=== PATIENT | male | born 1950 | race Caucasian/White ===

== ENCOUNTER 2022-01-11 04:20 | Emergency (ER) | payer OTHER, SELFPAY ==
[2022-01-11] VITALS (14 sets, daily range): BP systolic 116–141; BP diastolic 67–87; PULSE 79–84; RESP 13–24; TEMP 36.8; O2SAT 91–98
--- NOTE | 2022-01-11 | CT_ITS ---
Final Report Patient: ANGELITO RENDON Facility:?[facility] Patient ID:?[id number] Site Patient ID:?[id number] Site :?[id number] Study:?CT Chest/Abd/Pelvis W/O TRAUMA-01/11/2022 4:48:30 AM Ordering Physician:GAVIOTA LAZO Final Report: INDICATION: Trauma; chest pain. COMPARISON: None. Technique : No evidence of mediastinal hematoma. Normal size cardiac silhouette without any pericardial effusion. Coronary artery calcifications. Small amount of pleural effusion and/or hemorrhage within the right pleural space. Fractures involving the right 3rd through 10th ribs at multiple levels. undisplaced fractures involving the left 3rd through 6th anterior ribs. No pneumothorax identified. Multiple areas of pulmonary contusion bilaterally more on the right. No focal hepatic or splenic pathology. No pancreatic pathology. Gallbladder is unremarkable. Small amount of hemorrhage identified in the right adrenal gland as well as stranding in the right retroperitoneum most likely secondary to hemorrhage. Stranding identified in the periduodenal location; if it is deceleration type of injury, repeat CT chest, abdomen and pelvis with intravenous contrast suggested. No kidney stones or obstructive uropathy. No pneumoperitoneum or intestinal obstruction. CT study of the pelvis is unremarkable. Impression : 1. Small amount of hemorrhage in the right pleural space. 2. No pneumothorax. 3. Multiple areas of pulmonary contusion involving both lungs more on the right. 4. Multiple rib fractures bilateral involving the 3rd through 10th ribs on the right at multiple levels and 3rd through 6th ribs on the left anteriorly. 5. Small amount of hemorrhage within the right adrenal gland with stranding in the right retroperitoneum. 6. Questionable hemorrhage in the periduodenal area; was it a deceleration type injury; if so repeat CT with intravenous contrast suggested involving the chest, abdomen and pelvis. Please note that all CT scans at this facility use dose modulation, iterative reconstruction, and/or weight-based dosing when appropriate to reduce radiation dose to as low as reasonably achievable. Dictated by Ryan Alvarado MD @ 01/11/2022 5:46:15 AM (Electronic Signature)
[2022-01-11] MEDS: MORPHINE 4 MG/ML INJ IVP (04:41)
[2022-01-11] MEDS: fentaNYL 100 MCG/2 ML inj 50 MCG IVP (04:54)
[2022-01-11] MEDS: 0.9 % SODIUM CHLORIDE 1000 ml 1,000 ML IV (05:00)
[2022-01-11] MEDS: HYDROmorphone 0.5 mg/0.5 ml inj IVP (06:05)
[2022-01-11] MEDS: LACTATED RINGERS 1000 ML 1,000 ML IV (06:05)
--- NOTE | 2022-01-11 06:20 | ED.NURSE ---
Report to Yue Molding Technician. Patient left department via [facility] cot en route to [facility] ER.
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
--- NOTE | 2022-01-11 06:38 | ED.NURSE ---
Report to accepting [facility] FLIGHT MANAGER.
[2022-01-11 07:44] LABS: Hematocrit 46.3 % (37.0-53.0); Hemoglobin* 15.9 gm/dL (13.5-17.5); Red Blood Count 5.14 m/uL (4.30-5.90); White Blood Count* 10.56 K/uL (4.50-11.00)
[2022-01-11 07:45] LABS: Mean Corpuscular HGB Conc 34 gm/dL (32-36); Mean Corpuscular Hemoglobin 31 pg (26-34); Mean Corpuscular Volume 90 fL (80-100); Platelet Count* 261 K/uL (140-440); Slide Review Reflex No; Sodium* 136 mmol/L (135-149)
[2022-01-11 07:46] LABS: Potassium* 2.7 mmol/L (3.6-5.1)
[2022-01-11 07:47] LABS: Blood Urea Nitrogen* 6 mg/dL (7-30); Carbon Dioxide* 24 mmol/L (20-32); Chloride* 99 mmol/L (96-114); Creatinine* 1.1 mg/dL (0.5-1.5); Estimated Glomerular Filt Rate 72.67
[2022-01-11 07:48] LABS: Calcium* 7.5 mg/dL (8.4-10.6); Glucose* 248 mg/dL (60-115)
[2022-01-11 07:51] LABS: Alanine Aminotransferase* 539 U/L (4-50); Albumin* 4.4 g/dL (3.3-5.0); Aspartate Amino Transferase* 726 U/L (12-35); Bilirubin Total* 0.4 mg/dL (0.1-1.5)
[2022-01-11 07:52] LABS: Alkaline Phosphatase* 84 U/L (40-150)
[2022-01-11 07:53] LABS: Ethanol* 0.18 % (0.01-0.03); Troponin I* < 0.01 ng/mL (0.01-0.04)
== END 2022-01-11 06:20 | disposition short-term general hospital (02) ==
PROVIDERS: Emergency Provider Family Medicine
DX: S22.43XA Multiple fractures of ribs, bilateral, initial encounter for closed fracture (principal); S27.329A Contusion of lung, unspecified, initial encounter; K68.9 Other disorders of retroperitoneum; F10.129 Alcohol abuse with intoxication, unspecified; V86.59XA Driver of other special all-terrain or other off-road motor vehicle injured in nontraffic accident, initial encounter
CPT/HCPCS: 36415; 71250; 74176; 80048; 80076; 82077; 84484; 85027; 93005; 96374; 96375; 99283; 99291; 99292; G0390; J1170; J2270; J3010; J7030; J7120

== ENCOUNTER 2022-01-11 06:20 | Outpatient (CLI) | payer OTHER, SELFPAY | END 2022-01-11 06:21 | disposition home or self-care (01) | LOC: AMB 01-16 13:48 | PROVIDERS: Visit Provider Family Medicine | DX: S22.43XS Multiple fractures of ribs, bilateral, sequela (principal); R04.89 Hemorrhage from other sites in respiratory passages | CPT/HCPCS: A0425; A0427 ==

== ENCOUNTER 2024-10-21 15:52 | Emergency (ER) | payer MEDICARE, SELFPAY ==
[2024-10-21 15:53] VITALS: BP 151/73; PULSE 76; RESP 16; TEMP 36.4; O2SAT 98; BMI 32.7
--- OUTSIDE RECORDS SUMMARY | 2024-10-21 15:54 | XMS_ITS ---
Author Name BrandonVitor griffiths Address [address] [address] [facility], Address [address] [address] Care Team Providers Care Chiropractic Practice Manager Name Role Phone Vitor Reed Primary Care Physician Unavail able Larry Navarro Unavailable Unavailable Vitor Reed Preferred Provider Unavailable Medications Active Name Start Date Estimated Comple tion Date SIG Comments Prilosec OTC 20 mg tablet,delayed release take 1 tablet by oral route daily Problem List Description Status Onset GERD (gastroesophageal reflux disease) Active 10/06/2022 History of alcohol abuse Active Nicotine dependence Active 10/06/2022 Vital Signs Date Time BP-Sys(mm[Hg] BP-Nayeli(mm[Hg]) HR(bpm) RR(rpm) Temp WT HT HC BMI BSA BMI Percentile O2 Sat(%) 023 11:59 :00 AM 225 lbs 69 in 33.2 264 kg/m 2 2.22 9 m2 History of Procedures Date Ordered Description Order Status 10/06/2022 12:00 AM Annual Visit (G0439) Reviewed 10/06/2022 12:00 AM [facility] MGMT SRVC 20 MIN Re viewed History of Past Illness Name Date of Onset Comments GERD (gastroesophageal reflu x disease) 10/06/2022 10/06/2022-Cont. Prilosec 20 mg daily. Cont. f/u w/ PCP. History of alcohol abuse 10/06/2022 023-Hx of alcohol abuse w/ intoxication; encouraged cessation. Nicotine dependence 10/06/2022 10/06/2022-8 pack year smoker. Advised to f/u w/ PCP to discuss AAA and LDCT.-Discussed risks associated w nicotine use and counseled pt to seriously consider smoking cessation. Pt voiced understanding.-WCTM Encounter for annual general medical examination with abnormal findings in adult Oct 06 2022 10:42AM History of alcohol abuse Oct 06 2022 10:42AM GERD (gastroesophageal reflu x disease) Oct 06 2022 10:42AM Nicotine dependence Oct 06 2022 10:42AM Payers Insurance Name Company Name Plan Name Plan Number Policy Number Policy Group Number Start Date [facility] CAP [id number] Thursday, 2021 [id number] CAP [id number] Sunday, 2020 History of Encounters Visit Date Visit Type Provider 10/06/2022 In Office Visit Vitor Reed EDUCATIONAL GUIDANCE COUNSELOR
--- OUTSIDE RECORDS SUMMARY | 2024-10-21 15:55 | XMS_ITS | Clinical Summary ---
Author Organization [facility] Address [address] [place] [address] Care Team Providers Care Customer Professional Name Role Phone Reyes Navarro APRN, CNP Primary Care Provid er Source Comments You are receiving this document as you are listed as the primary care provider,follow-up provider, or the patient has been referred to you for consultation.This is in compliance with the Medicare and[employer] EHR Incentive Program,which states Providers who transition their patient to another setting of careor provider of care or refers their patient to another provider of care shouldprovide summary care record for each transition of care or referral. [facility] Allerg[facility] Active Allergy Reactions Criticality Noted Date Comments Iodinated Contrast Media Swelling High 01/11/2022 Other 06/13/2004 PN: LW Other1: -CONTRAST - SWOLLEN NECK Perflutren Lipid Microspheres Anaphylaxis High 04/22/2015 PN: reaction in 2001 during stress echo Review Contrast Media 04/08/2009 PN: LW CM1: Contrast IV - Ionic Reaction : Medications Glucosamine-Wes droitin 500-400 MG LW Comment:with MSM LW Addl Instr:INDICA JAHAIRA FOR OSTEOARTHRIT IS. 04/20/2006 Active Multiple Vitamins-Mineral s (MULTIVITAMIN OR) Take by mouth Daily. 100 13 04/20/2006 Active omeprazole ([facility] OMEPRAZOLE) 20 MG enteric coated tablet Take 1 tablet by mouth daily (every 24 hours). LW Addl Instr:Indica jahaira for: Acid Reflux 90 3 05/27/2010 Active aspirin 81 MG tablet Take 1 Tablet (81 mg) by mouth daily. 3 01/29/2010 Active omega-3 fatty acids (FISH OIL) 1000 MG capsule Take 1 Capsule (1,000 mg) by mouth daily. 11/02/2011 Active sildenafil (VIAGRA) 100 MG tabletIndication s:Erectile dysfunction, unspecified erectile dysfunction type Take 1 Tablet (100 mg) by mouth daily. Take 30 mins - 1 hr before intercourse. Take only once a day. 6 Tablet 6 02/08/2023 Active sildenafil (REVATIO) 20 MG tabletIndication s:Erectile dysfunction, unspecified erectile dysfunction type Take 1-5 Tablets (20-100 mg) by mouth daily as needed. 30 Tablet 11 02/10/2024 Active Active Problems Problem Noted Date Diagnosed Date Pre-diabetes 04/10/2015 Esophageal reflux 01/29/2010 Overview (02/24/2017): Gastroesophageal Reflux Disease Tobacco use disorder 01/29/2010 Overview (02/24/2017): Tobacco Abuse Hyperlipidemia 01/29/2010 Immunizations Immunization Administration Dates Next Due HepA Adult (19+ yrs) 01/15/1998,07/17/1997 HepA, Unspecified Formulation 01/15/1998, 998 IPV (Polio) 08/26/2004 Sanaz COVID-19 Vaccine 07/07/2021 PCV20 ([id number]) 02/19/2022 PPSV23 (Pneumovax) 04/24/2020 TDAP (BOOSTRIX) 04/10/2015 Td 02/27/2007,12/19/1996 Td (7+ yrs) 08/26/2004 Typhoid (Vivotif, Oral) 08/26/2004 Zoster (Zostavax) 11/02/2011 Family History Medical History Relation Name Comments Cancer, Lung Father High Blood Pressure Brother 1 High Blood Pressure Brother 2 Cancer Paternal Grandfather Cancer, Prostate Paternal Grandfather Diabetes Paternal Grandmother Relation Name Status Comments Father Mother Brother 1 Alive Brother 2 Alive Brother 3 Alive Brother 4 Alive Brother 5 Alive Daughter 1 Alive Daughter 2 Alive Maternal Grandfather Maternal Grandmother Paternal Grandfather Paternal Grandmother Sister 1 Alive Sister 2 Alive Sister 3 Alive Social History Tobacco Use Types Packs/Day Years Used Date Smoking Tobacco: Some Days Cigarettes Last attempted to quit: 06/25/2021 Smokeless Tobacco: Never Tobacco Cessation:Ready to Q uit: Not Asked; Counseling Given: Not Answered Comments:Smoking History Packs/day:2 pks per week Alcohol Use Standard Drinks/Week Comments Not Currently 0 (1 standard drink = 0.6 oz pur e alcohol) Alcoholic Drinks/day: PHQ-2 Answer Date Recorded PHQ-2 Score 0 02/10/2024 Sex and Gender Information Value Date Recorded Sex Assigned at Not on file Legal Sex Male 11:43 AM CDT Gender Identity Not on file Sexual Orientation Not on file 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 Not on file Not on file No t on file Last Filed Vital Signs Vital Sign Reading Time Taken Comments Blood Pressure 119/64 02/10/2024 10:25 AM CDT Pulse 65 02/10/2024 10:25 AM CDT Temperature 37 C (98.6 F) 07/22/2022 1:16 PM CHILD DAY CARE PROVIDER Respiratory Rate 16 08/14/2021 11:25 AM CHILD DAY CARE PROVIDER Oxygen Saturation 95% 08/14/2021 11:25 AM CHILD DAY CARE PROVIDER Inhaled Oxygen Concentration - - Weight 97.1 kg (214 lb) 02/10/2024 10:25 AM CDT Height 173 cm (5' 8.11) 02/10/2024 10:25 AM CDT Body Mass Index 32.43 02/10/2024 10:25 AM CDT Plan of Treatment Health Maintenance Due Date Last Done Comments Lung Cancer Screening 1950 Zoster/Shingles Vaccine (2 of 3) 12/28/2011 11/02/2011 COVID-19 Vaccine (2 - season) 2024 07/07/2021 Influenza Vaccine (#1) 2024 Medicare Annual Wellness Visit 07/05/2024 02/10/2024, 02/10/2024 (Completed), 02/08/2023 (Completed), Additional history exists Prediabetes: HGBA1C 02/09/2025 02/10/2024, 02/08/2023, 02/19/2022, Additional history exists DTaP/Tdap/Td Vaccine (2 - Tdap) 04/10/2025 04/10/2015, 02/27/2007, 08/26/2004, Additional history exists RSV Vaccine (1 - 1-dose 75+ series) 02/01/2027 Colonoscopy 07/15/2027 07/15/2017, 02/03/2008 Cholesterol 02/09/2029 02/10/2024, 08/01/2023, 02/19/2022, Additional history exists HepA Vaccine Completed 01/15/1998, 01/02, 07/17/1997, Additional history exists IPV (Polio) Vaccine Aged Out 08/26/2004 No longe r eligible based on patient's age to complete this topic Hep C Screening (Preventive Services) Completed 04/14/2017 Abdominal Aortic Aneurysm (AAA) Screening Completed 05/13/2020 Pneumococcal Vaccine 50+ Yrs Completed 02/19/2022, 04/24/2020 HepB Vaccine Aged Out No longer eligi ble based on patient's age to complete this topic Hib Vaccine Aged Out No longer eligi ble based on patient's age to complete this topic MCV4 Vaccine Aged Out No longer eligi ble based on patient's age to complete this topic Meningococcal B Vaccine Aged Out No l onger eligible based on patient's age to complete this topic Procedures Procedure Name Priority Date/Time Associated Diagnosis Comments HGB A1C Routine 02/10/2024 11:27 AM CDT Pre-diabetes LIPID PANEL & DIRECT LDL (IF NEEDED) Routine 02/10/2024 11:27 AM CDT Mixed hyperlipidemia (HRC) US ABD AAA SCREENING Routine 05/13/2020 10:22 AM CHILD DAY CARE PROVIDER Encounter for abdominal aortic aneurysm (AAA) screening ENDOSCOPY, COLON, SCREENING/DIAGNOST IC Routine 07/15/2017 1:46 PM CHILD DAY CARE PROVIDER Screening for colon cancer HEPATITIS C ANTIBODY, WITH REFLEX Routine 04/14/2017 11:52 AM CDT Need for hepatitis C screening test from Last 3 Months or Most Recently Relevant to Health Maintenance Results * (ABNORMAL) Lipid Panel & Direct LDL (if Needed) (02/10/2024 11:27 AM CDT) Cholesterol 257(H) 0 - 199 mg/dL 02/10/2024 2:59 PM [facility] Triglyceride 137 <=149 mg/dL 02/10/2024 2:59 PM [facility] HDL Cholesterol 40 >=40 mg/dL 2:59 PM [facility] LDL, Calculated 190(H) <130 mg/dL 2:59 PM [facility] Non HDL Chol, Calculated 217(H) <=159 mg/dL 02/10/2024 2:59 PM [facility] Cholesterol/HDL Ratio 6.4(H) <=5.0 02/10/2024 2:59 PM [facility] Hours Fasting 16.0 8 - 12 Hours 02/10/2024 2:59 PM [facility] Blood Venipuncture / Unknown 02/10/2024 11:27 AM CDT 02/10/2024 11:27 AM CDT Reyes Navarro APRN, PLANT CHANGER LAB_1 Miesha l Result [facility] [address] [place] [address] * (ABNORMAL) Hgb A1C (02/10/2024 11:27 AM CDT) [facility] Hemoglobin A1C (Rapid) 5.9(H) <=5.6 % 02/10/2024 11:56 AM [facility] Estimated Average Glucose (Calc) 123 < 117 mg/dL 02/10/2024 11:56 AM [facility] Comment:Estimated average gl ucose (eAG) converts A1c into glucose units (mg/dL) and estimates average glucose over the past approximately 3 months. The eAG reference interval (<117 mg/dL) corresponds to an A1c of <5.7%. Blood Venipuncture / Unknown 02/10/2024 11:27 AM CDT 02/10/2024 11:27 AM CDT Narrative [facility] - 02/10/2024 11:56 AM CDT For patients not previously diagnosed with diabetes: 5.7-6.4%: Increased risk for diabetes 6.5% and greater: Diagnostic for diabetes For patients diagnosed with diabetes: <8.0%: Goal of therapy for ages 18-75 Clinicians may recommend a higher or lower goal for specific individuals. The test method used for this Hemoglobin A1c result can experience interference from elevated hemoglobin and other hemoglobin variants. In patients with results that do not correlate clinically, contact the lab for further direction. us Reyes W Ramon WOOD SHOP TEACHER, [facility]AL[facility] LAB_1 Miesha l Result [facility] [address] [place] [address], [facility] * US Abd AAA Screening (05/13/2020 10:22 AM CHILD DAY CARE PROVIDER) Anatomical Region Laterality Modality Abdomen Ultrasound 05/13/2020 10:0 6 AM CHILD DAY CARE PROVIDER Impressions 05/13/2020 10:35 AM CHILD DAY CARE PROVIDER HISTORY: Evaluate for AAA. COMPARISON: None. FINDINGS: Proximal abdominal aorta measures (AP x Width): 2.4 x 2.3 cm Mid abdominal aorta measures (AP x Width): 2.1 x 2.3 cm Distal abdominal aorta measures (AP x Width): 2.2 x 2.3 cm Right common iliac artery measures 1.5 cm in maximum caliber. Left common iliac artery measures 1.4 cm in maximum caliber. IMPRESSION: No evidence of abdominal aortic aneurysm. PN Consensus recommendation for asymptomatic abdominal aortic aneurysm follow- up: 3.0-3.4 cm, recommend follow-up ultrasound in 2 years 3.5-4.4 cm, recommend follow-up ultrasound in 1 year 4.5-4.9 cm, recommend follow-up ultrasound in 6 months 5.0 cm or greater OR growth exceeding 5 mm in 6 months or 10 mm in 1 year, recommend consultation with vascular surgery Narrative Procedure Note Surjit Mane MD - 05/13/2020 IMPRESSION HISTORY: Evaluate for AAA. COMPARISON: None. FINDINGS: Proximal abdominal aorta measures (AP x Width): 2.4 x 2.3 cm Mid abdominal aorta measures (AP x Width): 2.1 x 2.3 cm Distal abdominal aorta measures (AP x Width): 2.2 x 2.3 cm Right common iliac artery measures 1.5 cm in maximum caliber. Left common iliac artery measures 1.4 cm in maximum caliber. IMPRESSION: No evidence of abdominal aortic aneurysm. PN Consensus recommendation for asymptomatic abdominal aortic aneurysmfollow-up: 3.0-3.4 cm, recommend follow-up ultrasound in 2 years 3.5-4.4 cm, recommend follow-up ultrasound in 1 year 4.5-4.9 cm, recommend follow-up ultrasound in 6 months 5.0 cm or greater OR growth exceeding 5 mm in 6 months or 10 mm in 1 year,recommend consultation with vascular surgery us Reyes Navarro WOOD SHOP TEACHER, PLANT CHANGER RAD US Miesha l Result * Colonoscopy (07/15/2017 1:46 PM CHILD DAY CARE PROVIDER) Anatomical Region Laterality Modality Other 07/15/2017 1:46 PM CHILD DAY CARE PROVIDER Narrative 07/15/2017 1:46 PM CHILD DAY CARE PROVIDER Patient Name: Flaco Condon Procedure Date: 07/15/2017 1:46 PM Date of : 1950 Admit Type: Outpatient Age: 67 Gender: Male Note Status: Finalized Attending MD: Raymond Prieto MD Procedure: Colonoscopy Indications: Screening for colorectal malignant neoplasm, This is the patient's first colonoscopy Providers: Raymond Prieto MD, Indu Scott Referring MD: Reyes Navarro NP Medicines: Midazolam 2 mg IV, Fentanyl 50 micrograms IV, O2 2 l/min per NC and CO2 for insufflation Complications: No immediate complications. Estimated blood loss: Minimal. Procedure: After I obtained informed consent, the scope was passed under direct vision. Throughout the procedure, the patient's blood pressure, pulse, and oxygen saturations were monitored continuously. The Colonoscope was introduced through the anus and advanced to 3 cm into the ileum. The colonoscopy was performed without difficulty. The patient tolerated the procedure well. The quality of the bowel preparation was good. Findings: The perianal and digital rectal examinations were normal. Normal mucosa was found in the entire colon. A 2 mm polyp was found in the sigmoid colon. The polyp was sessile. The polyp was removed with a cold biopsy forceps. Resection and retrieval were complete. Estimated blood loss was minimal. Verification of patient identification for the specimen was done by the physician and nurse using the patient's name and date. Multiple small-mouthed diverticula were found in the sigmoid colon. The terminal ileum appeared normal. The exam was otherwise without abnormality on direct and retroflexion views. Impression: - Normal mucosa in the entire examined colon. 1 small polyp identified and removed. Possibly hyperplastic. - One 2 mm polyp in the sigmoid colon, removed with a cold biopsy forceps. Resected and retrieved. - Diverticulosis in the sigmoid colon. - The examined portion of the ileum was normal. - The examination was otherwise normal on direct and retroflexion views. Recommendation: - Discharge patient to home. - High fiber diet. - Continue present medications. - Await pathology results. - Repeat colonoscopy in 5-10 years for surveillance based on pathology results. - Return to referring physician PRN. Procedure Code(s): --- Professional --- 25682, Colonoscopy, flexible; with biopsy, single or multiple Diagnosis Code(s): --- Professional --- Z12.11, Encounter for screening for malignant neoplasm of colon D12.5, Benign neoplasm of sigmoid colon K57.30, Diverticulosis of large intestine without perforation or abscess without bleeding CPT copyright 2016 [employer]. All rights reserved. The codes documented in this report are preliminary and upon learning disabilities teacher review may be revised to meet current compliance requirements. Raymond Prieto MD 07/15/2017 2:18:19 PM Number of Addenda: 0 Note Initiated On: 07/15/2017 1:46 PM Endoscopy Report Procedure Note Raymond Prieto MD - 07/15/2017 Patient Name: Flaco Condon Procedure Date: 07/15/2017 1:46 PM Date of : 1950 Admit Type: Outpatient Age: 67 Gender: Male Note Status: Finalized Attending MD: Raymond Prieto MD Procedure: Colonoscopy Indications: Screening for colorectal malignant neoplasm, This is the patient's first colonoscopy Providers: Raymond Prieto MD, Indu Scott Referring MD: Reyes Navarro NP Medicines: Midazolam 2 mg IV, Fentanyl 50 micrograms IV, O2 2 l/min per NC and CO2 for insufflation Complications: No immediate complications. Estimated blood loss: Minimal. Procedure: After I obtained informed consent, the scope was passed under direct vision. Throughout the procedure, the patient's blood pressure, pulse, and oxygen saturations were monitored continuously. The Colonoscope was introduced through the anus and advanced to 3 cm into the ileum. The colonoscopy was performed without difficulty. The patient tolerated the procedure well. The quality of the bowel preparation was good. Findings: The perianal and digital rectal examinations were normal. Normal mucosa was found in the entire colon. A 2 mm polyp was found in the sigmoid colon. The polyp was sessile. The polyp was removed with a cold biopsy forceps. Resection and retrieval were complete. Estimated blood loss was minimal. Verification of patient identification for the specimen was done by the physician and nurse using the patient's name and date. Multiple small-mouthed diverticula were found in the sigmoid colon. The terminal ileum appeared normal. The exam was otherwise without abnormality on direct and retroflexion views. Impression: - Normal mucosa in the entire examined colon. 1 small polyp identified and removed. Possibly hyperplastic. - One 2 mm polyp in the sigmoid colon, removed with a cold biopsy forceps. Resected and retrieved. - Diverticulosis in the sigmoid colon. - The examined portion of the ileum was normal. - The examination was otherwise normal on direct and retroflexion views. Recommendation: - Discharge patient to home. - High fiber diet. - Continue present medications. - Await pathology results. - Repeat colonoscopy in 5-10 years for surveillance based on pathology results. - Return to referring physician PRN. Procedure Code(s): --- Professional --- 35592, Colonoscopy, flexible; with biopsy, single or multiple Diagnosis Code(s): --- Professional --- Z12.11, Encounter for screening for malignant neoplasm of colon D12.5, Benign neoplasm of sigmoid colon K57.30, Diverticulosis of large intestine without perforation or abscess without bleeding CPT copyright 2016 [employer]. All rights reserved. The codes documented in this report are preliminary and upon learning disabilities teacher review may be revised to meet current compliance requirements. Raymond Prieto MD 07/15/2017 2:18:19 PM Number of Addenda: 0 Note Initiated On: 07/15/2017 1:46 PM Endoscopy Report Reyes Navarro APRN, RALPH ET GI PROCEDURE MELBA DURAN Final Result * Hepatitis C Virus Nia with Reflex (04/14/2017 11:52 AM CDT) Hepatitis C Antibody Nonreactive Nonreactive PN SOFT 04/14/2017 11:5 2 AM CDT 04/14/2017 4:26 PM CDT Narrative PN SOFT - 04/14/2017 5:35 PM CDT Performed at [facility] [id number] [place] [address] CLIA number [id number] us Reyes Navarro APRN, RALPH LAB_1 Miesha l Result SOFT [facility] [place] [address] from Last 3 Months or Most Recently Relevant to Health Maintenance Insurance [facility] MEDICARE Advance Directives Documents on File Type Date Recorded 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
--- OUTSIDE RECORDS SUMMARY | 2024-10-21 15:55 | XMS_ITS | Clinical Summary ---
Author Organization [place] [facility] & [facility] Address [address] [place] [id number] Care Team Providers Care Dish Up Person Name Role Phone Pcp, No Primary Care Provider Unavailabl e Allergies No known active allergies Medications predniSONE 20 mg tabletIndication s:Right hip pain,Arthritis of right hip 2 pills per day for 5 days. 1 Pill per day for 5 days. 15 Tablet 09/29/2024 Active Active Problems No known active problems Encounters Date Type Department Care Team Description 09/29/2024 12:45 PM CDT Office Visit [facility] [place] [address] [facility] [address] [place] [address] Kodak Schroeder MD Consult (Right hip pain ) 09/29/2024 Travel 09/26/2024 Travel 09/25/[address] [facility] [address] [place] [address] Kodak Schroeder MD Screening 09/21/2024 11:35 AM CDT Ancillary Procedure [facility] [address] [facility] [address] [place] [address] 09/21/2024 11:30 AM CDT Ancillary Procedure [facility] [address] [facility] [address] [place] [address] 09/21/2024 11:15 AM CDT Office Visit [facility] [address] [facility] [address] [place] [address] Jaron Ag DO Hip Pain/problem (Right hip) 09/21/2024 Travel 09/19/2024 Travel 09/17/2024 Telephone [facility] [address] [place] [address] Michael Lott MD Results 09/15/2024 12:15 PM CDT Ancillary Procedure [facility] [address] [place] [address] 09/15/2024 11:45 AM CDT Office Visit [facility] [address] [place] [address] Michael Lott MD Hip Pain/problem (ongoing, x2-3 years ) 09/15/2024 Travel 09/12/2024 Travel from Last 3 Months Immunizations Immunization Administration Dates Next Due Hepatitis A (Adult) 01/15/1998,07/17/1997 Hepatitis A, Unspecified 01/15/1998,07/17/1997 Inactivated Polio Vaccine 08/26/2004 Pneumococcal Conj 20-valent (Prevnar 20) 022 Pneumococcal Poly,23-Valent (Pneumovax) 04/24/20 20 Td (Age >=7 Years) 02/27/2007,12/19/1996 Td, Preservative Free (age >= 7 Years) 5 Tdap 04/10/2015 Typhoid (oral) 08/26/2004 Zoster (Zostavax-ZVL, live) 11/02/2011 Social History Tobacco Use Types Packs/Day Years Used Date Smoking Tobacco: Former Cigarettes Q uit: 09/15/1988 Smokeless Tobacco: Never Tobacco Cessation:Counseling Given: No Alcohol Use Standard Drinks/Week Comments Not Currently 0 (1 standard drink = 0.6 oz pur e alcohol) Social Connections Answer Date Recorded Do you often feel lonely or isolated from those around you? 0 09/12/2024 Financial Resource Strain Answer Date R ecorded Difficulty of Paying Living Expenses 3 09/12/2024 Difficulty of Paying Living Expenses Not on file 09/12/2024 Food Insecurity Answer Date Recorded Do you worry your food will run out before you are able to buy more? 1 09/12/2024 Transportation Needs Answer Date Record ed Does lack of transportation keep you from medica l appointments? 1 09/12/2024 Does lack of transportation keep you from work, meetings or getting things that you need? 1 09/12/2024 Housing Stability Answer Date Recorded What is your housing situation today? 1 09/12/2024 Utilities Answer Date Recorded Do you have trouble paying f or utilities (for example, heat, electricity, water, phone)? 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 Gender Identity Not on file Sexual Orientation Not on file Obstetrics History Last Filed Vital Signs Vital Sign Reading Time Taken Comments Blood Pressure 122/52 09/29/2024 1:04 PM CDT Pulse 79 09/29/2024 1:04 PM CDT Temperature - - Respiratory Rate - - Oxygen Saturation 95% 09/29/2024 1:0 4 PM CDT Inhaled Oxygen Concentration - - Weight 96.8 kg (213 lb 6.4 oz) 09/29/2024 1:04 PM CDT Height 175.3 cm (5' 9) 09/29/2024 1:04 PM CDT Patient states Body Mass Index 31.51 09/29/2024 1:04 PM CDT Plan of Treatment Health Maintenance Due Date Last Done Comments Depression screening for age 12+ 1964 Hepatitis C screening for ag e 18-79 02/01/1970 Colonoscopy through age 75 02/01/1997 Lipids for age 45-75 02/01/1997 Zoster (shingles) series for age 50+ (2 of 3) 12/28/2011 11/02/2011 AAA screening age 65-74 02/01/2017 Medicare Wellness for age 65+ 02/01/2017 COVID-19 vaccine series ( season) 2024 07/07/2021 Influenza Vaccine (Season Ended) 2025 Tetanus booster 04/10/2025 04/10/2015, 02/03, 08/26/2004, Additional history exists BMI (ht and wt on same day) for age 18+ 09/29/2025 09/29/2024 RSV vaccine for adults or (1 - 1-dose 75+ series) 02/01/2027 Tdap Completed 04/10/2015 Pneumococcal series for age 50+ Completed , 04/24/2020 Procedures Procedure Name Priority Date/Time Associated Diagnosis Comments XR HIP 1 VIEW W PELVIS RIGHT Routine 09/21/2024 11:41 AM CDT Right hip pain XR LEG LENGTH Routine 09/21/2024 11:40 AM CDT Right hip pain XR HIP 1 VIEW W PELVIS RIGHT Routine 09/15/2024 12:13 PM CDT Hip pain, right from Last 3 Months Results * XR HIP 1 VIEW W PELVIS RIGHT (09/21/2024 11:41 AM CDT) Only the most recent of2 resultswithin the time period is included. Anatomical Region Laterality Modality HIPS, HIPR, Pelvis Digital Radio graphy 09/24/2024 2:25 PM CDT Impressions 09/24/2024 2:25 PM CDT Mild osteoarthritis. Periarticular soft tissue ossicle superolateral margin. No acute fracture. Anatomic alignment. Dictated by Low Mullen MD @ 09/24/2024 2:25:27 PM (Electronically Signed) Narrative 09/24/2024 2:25 PM CDT For Patients: As a result of the Cures Act, medical imaging exams and procedure reports are released immediately into your electronic medical record. You may view this report before your referring provider. If you have questions, please contact your health care provider. INDICATION: Hip pain. TECHNIQUE: Two views pelvis and right hip. COMPARISON: 15 September 2024. Procedure Note Low Mullen MD - 09/24/2024 For Patients: As a result of the Cures Act, medical imagingexams and procedure reports are released immediately into your electronicmedical record. You may view this report before your referring provider.If you have questions, please contact your health care provider. INDICATION: Hip pain. TECHNIQUE: Two views pelvis and right hip. COMPARISON: 15 September 2024. IMPRESSION: Mild osteoarthritis. Periarticular soft tissue ossicle superolateralmargin. No acute fracture. Anatomic alignment. Dictated by Low Mullen MD @ 09/24/2024 2:25:27 PM (Electronically Signed) Jaron Ag DO GENERAL IMAGING Final Resu lt * XR LEG LENGTH (09/21/2024 11:40 AM CDT) Anatomical Region Laterality Modality LEGS, FEMURS Digital Radiogra phy 09/24/2024 7:14 PM CDT Narrative 09/24/2024 7:14 PM CDT For Patients: As a result of the Cures Act, medical imaging exams and procedure reports are released immediately into your electronic medical record. You may view this report before your referring provider. If you have questions, please contact your health care provider. Indication: Right hip pain. Technique: X-ray leg length 1 views. Comparison: None. Findings: Right le mm. No focal abnormality. Left le mm. No focal abnormality. Dictated by Bora Mahmood MD @ 09/24/2024 7:14:53 PM (Electronically Signed) Procedure Note Bora Mahmood MD - 09/24/2024 For Patients: As a result of the Cures Act, medical imagingexams and procedure reports are released immediately into your electronicmedical record. You may view this report before your referring provider.If you have questions, please contact your health care provider. Indication: Right hip pain. Technique: X-ray leg length 1 views. Comparison: None. Findings: Right le mm. No focal abnormality. Left le mm. No focal abnormality. Dictated by Bora Mahmood MD @ 09/24/2024 7:14:53 PM (Electronically Signed) Jaron Ag DO GENERAL IMAGING Final Resu lt from Last 3 Months Insurance [employer] MEDICARE ADVANTAGE MR Care Teams Dish Up Person Relationship Specialty Start Date End Date Pcp, No . PCP - General 02/16/24
--- OUTSIDE RECORDS SUMMARY | 2024-10-21 15:55 | XMS_ITS | Clinical Summary ---
Author Organization [facility] Address [address] [place] [address]. 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 Gender Identity Not on file Sexual Orientation Not on file Last Filed Vital Signs Vital Sign Reading Time Taken Comments Blood Pressure 134/78 02/21/2024 8:17 AM CDT Pulse 64 02/21/2024 8:17 AM CDT Temperature 36.7 C (98 F) 02/21/2024 5:26 AM CDT Respiratory Rate 16 02/21/2024 8:17 AM CDT Oxygen Saturation 98% 02/21/2024 8:17 AM CDT Inhaled Oxygen Concentration - - Weight 98.9 kg (218 lb 0.6 oz) 02/21/2024 5:26 AM CDT Height - - Body Mass Index - - Plan of Treatment Health Maintenance Due Date Last Done Comments ADVANCE CARE PLANNING 1950 ANNUAL REVIEW OF HM ORDERS 1950 CT COLONOGRAPHY 1952 FIT 1952 FLEX SIG 1952 sDNA (Cologuard) 1950 COLONOSCOPY 02/01/1962 COLORECTAL CANCER SCREENING 02/01/1962 LIPID 1992 ZOSTER IMMUNIZATION (2 of 3) 12/28/2011 11/02/2011 FALL RISK ASSESSMENT 02/01/2017 MEDICARE ANNUAL WELLNESS VISIT 03/27/2022 03/27/2021, 04/24/2020, 11/02/2018, Additional history exists COVID-19 Vaccine (2 - 2023- season) 2024 07/07/2021 INFLUENZA VACCINE (#1) 2024 PHQ-2 (once per calendar year) 2024 DTAP/TDAP/TD IMMUNIZATION (2 - Td or Tdap) 04/10/2025 04/10/2015, 02/27/2007, 08/26/2004, Additional history exists RSV VACCINE (1 - 1-dose 75+ series) 02/01/2027 DIABETES SCREENING 02/20/2027 02/21/2024 HEPATITIS C SCREENING Completed 04/14/2017 Pneumococcal Vaccine: 50+ Years Completed 02/19/2022, 04/24/2020 HPV IMMUNIZATION Aged Out No longer e ligible based on patient's age to complete this topic MENINGITIS IMMUNIZATION Aged Out No l onger eligible based on patient's age to complete this topic Procedures Procedure Name Priority Date/Time Associated Diagnosis Comments BASIC METABOLIC PANEL STAT 02/21/2024 5:41 AM CDT from Last 3 Months or Most Recently Relevant to Health Maintenance Results * (ABNORMAL) Basic metabolic panel (02/21/2024 5:41 AM CDT) Sodium 139 135 - 145 mmol/L 02/21/2024 6:14 AM CDT [facility] Potassium 4.3 3.4 - 5.3 mmol/L 02/21/2024 6:14 AM CDT [facility] Chloride 100 98 - 107 mmol/L 02/21/2024 6:14 AM CDT [facility] Carbon Dioxide (CO2) 27 22 - 29 mmol/L 02/21/2024 6:14 AM CDT [facility] Anion Gap 12 7 - 15 mmol/L 02/21/2024 6:14 AM CDT [facility] Urea Nitrogen 10.2 8.0 - 23.0 mg/dL 02/21/2024 6:14 AM CDT [facility] Creatinine 1.02 0.67 - 1.17 mg/dL 02/21/2024 6:14 AM CDT [facility] GFR Estimate 78 >60 mL/min/1.7 3m2 02/21/2024 6:14 AM CDT [facility] Comment:eGFR calculated 2020 CKD-EPI equation. Calcium 9.7 8.8 - 10.4 mg/dL 02/21/2024 6:14 AM CDT [facility] Comment:Reference intervals for this test were updated on 01/18/2024 to reflect our healthy population more accurately. There may be differences in the flagging of prior results with similar values performed with this method. Those prior results can be interpreted in the context of the updated reference intervals. Glucose 140(H) 70 - 99 mg/dL 02/21/2024 6:14 AM CDT [facility] Blood BLOOD SPECIMEN / Unknown Venipuncture / Unknown 02/21/2024 5:41 AM CDT 02/21/2024 5:47 AM CDT us Wan Barraza DO LAB - BLOOD ORDERABLES F inal Result [facility] [address] [facility] (1st floor, no room number) [place] [address], [facility] from Last 3 Months or Most Recently Relevant to Health Maintenance Insurance UC[employer] MEDICARE UCARE MEDICARE Care Teams Pony Worker Relationship Specialty Start Date End Date Reyes Navarro NP PCP - General Nurse Practitioner 02/21/24
--- NOTE | 2024-10-21 16:04 | ED_ITS ---
HPI - General Adult General Chief complaint: Hip Injury/Pain Stated complaint: Hip pain Time Seen by Provider: 10/21/24 15:54 Source: patient and family Mode of arrival: ambulatory Limitations: no limitations History of Present Illness HPI narrative: 74-year-old male coming in today complaining of hip in back pain. Patient states he has been dealing with this pain for about a month now. He has been following up at [facility]. He states he has had a hip and a lumbar spine MRI and he was told that he has a pinched nerve in his lumbar spine causing his pain. He is scheduled for an epidural injection for Wednesday. However, today he decided to go with do some work outside as he feels he has been sitting on the couch too much recently because of his pain. He was lifting heavy pills of water in slowly throughout the day the pain got worse. He states he is having a hard time finding a comfortable position. His team at [facility] told him to come to the emergency department for pain management. Patient denies fevers, chills, nausea or vomiting. He denies any numbness or tingling in the groin area. No saddle anesthesia. No loss of bowel or bladder function. He has taken Aleve and Tylenol at home. Related Data Home Medications ?Medication ?Instructions ?Recorded ?Confirmed No Known Home Medications 01/11/22 01/11/22 Allergies Allergy/AdvReac Type Severity Reaction Status Date / Time Iodinated Contrast Media Allergy Severe Anaphylaxis Verified 01/11/22 05:27 Review of Systems Status of ROS: Reports: 6 or more systems reviewed and unremarkable except as noted in History and below [facility] Medical History Alcohol intoxication ?F10.929 - Alcohol use, unspecified with intoxication, unspecified (ICD-10) Corneal abrasion ?S05.00XA - Injury of conjunctiva and corneal abrasion without foreign body, unspecified eye, initial encounter (ICD-10) Surgical History S/P ACL repair ?Z98.890 - Other specified postprocedural states (ICD-10) Social History Smoking Status: Current every day smoker What tobacco products do you use: cigarettes Do you use any of these nicotine containing products: None Second hand tobacco smoke exposure: No How often do you have a drink containing alcohol: never AUDIT-C Alcohol total score: 0 Non-prescribed substance use: denies use service: No Exam Narrative: Exam Narrative: Overweight, well-developed patient in no acute distress. Alert and oriented. Answers questions appropriately. Mood and affect are appropriate. Thoughts are goal oriented and rational. No tangential or magical thinking noted. Patient speaks in full sentences without needing to catch his breath. HEENT: Normocephalic atraumatic. Extraocular muscles are intact. Conjunctivae are moist without any icterus noted. Moist mucous membranes. Extremities: Bilateral lower extremities are without edema. Skin: Well perfused without any obvious rashes. Strength is 5/5 of the lower extremities. Reflexes are 2+ and symmetric at the knees. Cannot reproduce his pain with palpation at the hip. Const: Vital Signs, click to edit/add: Vital Signs - 24 hr 10/21/24 15:53 Temperature 97.5 F L Pulse Rate [Pulse Oximeter] 76 Respiratory Rate 16 Blood Pressure [Ri ght Upper Arm] 151/73 H Pulse Oximetry 98 Oxygen Delivery Me thod Room Air Course Vital Signs Vital signs: Initial Vital Signs Temperature 97.5 F L 10/21/24 15:53 Temperature Source Temporal Artery Scan 10/21/24 15:53 Pulse Rate 76 10/21/24 15:53 Respiratory Rate 16 10/21/24 15:53 Blood Pressure 151/73 H 10/21/24 15:53 Blood Pressure Mean 99 10/21/24 15:53 Blood Pressure Position Supine 10/21/24 15:53 Pulse Oximetry 98 10/21/24 15:53 Oxygen Delivery Method Room Air 10/21/24 15:53 Vital Signs Temperature 97.5 F L 10/21/24 15:53 Pulse Rate 76 10/21/24 15:53 Respiratory Rate 16 10/21/24 15:53 Blood Pressure 151/73 H 10/21/24 15:53 Pulse Oximetry 98 10/21/24 15:53 Oxygen Delivery Method Room Air 10/21/24 15:53 Temperature 97.5 F L 10/21/24 15:53 Pulse Rate 76 10/21/24 15:53 Respiratory Rate 16 10/21/24 15:53 Blood Pressure 151/73 H 10/21/24 15:53 Pulse Oximetry 98 10/21/24 15:53 Oxygen Delivery Method Room Air 10/21/24 15:53 Medical Decision Making MDM Narrative Medical decision making narrative: 74-year-old male with pain x1 month secondary to nerve impingement at the lumbar spine. Patient will continue to get his treatment at [facility]. He is given 1 dose of hydrocodone acetaminophen here in the ED. Will discharge him home with 10 tablets. Follow up on Wednesday as scheduled. Discharge Plan Discharge Clinical Impression: Back pain Patient Disposition: Home, Self-Care Condition: Stable Additional Instructions: Take medications as needed/as directed. This medication does contain acetaminophen- Do not take more than 3000 mg of Tylenol (acetaminoiphen) in a 24 hour period. Okay to use ice to the low back or heat - whichever feels better. Do not apply heat or ice directly to the skin, do not apply for more than 20 minutes at a ti me. Follow-up on Wednesday as scheduled. Return to the emergency department if you develop numbness in the groin area, or the inability to control bowel or bladder. Ten tablets of [place] sent to [facility]. Prescriptions: No Action No Known Home Medications Follow Up/Referrals: Provider,Not a Local [Primary Care Provider] - Stand Alone Forms: [employer] Info Instructions
[2024-10-21] MEDS: HYDROCODONE-ACETAMIN 5-325 MG 1 TAB PO (16:07)
--- OUTSIDE RECORDS SUMMARY | 2024-10-21 16:15 | XMS_ITS | Clinical Summary ---
Author Organization [facility] Address [address] [place] [address]. 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
--- OUTSIDE RECORDS SUMMARY | 2024-10-21 16:15 | XMS_ITS | Clinical Summary ---
Author Organization [facility] Address [address] [place] [address] Care Team Providers Care Combat Systems Officer Name Role Phone Reyes Navarro APRN, CNP Primary Care Provid er Source Comments You are receiving this document as you are listed as the primary care provider,follow-up provider, or the patient has been referred to you for consultation.This is in compliance with the Medicare and[facility] EHR Incentive Program,which states Providers who transition their patient to another setting of careor provider of care or refers their patient to another provider of care shouldprovide summary care record for each transition of care or referral. [facility] 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 Not on file No t on file Last Filed Vital Signs Vital Sign Reading Time Taken Comments Blood Pressure 119/64 02/10/2024 10:25 AM CDT Pulse 65 02/10/2024 10:25 AM CDT Temperature 37 C (98.6 F) 07/22/2022 1:16 PM [employer] Respiratory Rate 16 08/14/2021 11:25 AM [employer] Oxygen Saturation 95% 08/14/2021 11:25 AM [employer] Inhaled Oxygen Concentration - - Weight 97.1 [...] ABD AAA SCREENING Routine 05/13/2020 10:22 AM [employer] Encounter for abdominal aortic aneurysm (AAA) screening ENDOSCOPY, COLON, SCREENING/DIAGNOST IC Routine 07/15/2017 1:46 PM [employer] Screening for colon cancer HEPATITIS C ANTIBODY, WITH REFLEX Routine 04/14/2017 11:52 AM CDT Need for hepatitis C screening test from Last 3 Months or Most Recently Relevant to Health Maintenance Results * (ABNORMAL) Lipid Panel & Direct LDL (if Needed) (02/10/2024 11:27 AM CDT) Cholesterol 257(H) 0 - 199 mg/dL 02/10/2024 2:59 PM [facility] Triglyceride 137 <=149 mg/dL 02/10/2024 2:59 PM [facility] HDL Cholesterol 40 >=40 mg/dL 2:59 PM [facility] LDL, Calculated 190(H) <130 mg/dL 2:59 PM [facility] Non HDL Chol, Calculated 217(H) <=159 mg/dL 02/10/2024 2:59 PM [facility] Cholesterol/HDL Ratio 6.4(H) <=5.0 02/10/2024 2:59 PM [facility] Hours Fasting 16.0 8 - 12 Hours 02/10/2024 2:59 PM [facility] Blood Venipuncture / Unknown 02/10/2024 11:27 AM CDT 02/10/2024 11:27 AM CDT Reyes Navarro APRN, BULL GANG WORKER LAB_1 Miesha l Result [facility] [address] [place] [address] * (ABNORMAL) Hgb A1C (02/10/2024 11:27 AM CDT) [facility] Hemoglobin A1C (Rapid) 5.9(H) <=5.6 % 02/10/2024 11:56 AM [facility] Estimated Average Glucose (Calc) 123 < 117 mg/dL 02/10/2024 11:56 AM [facility] Comment:Estimated average gl ucose (eAG) converts A1c into glucose units (mg/dL) and estimates average glucose over the past approximately 3 months. The eAG reference interval (<117 mg/dL) corresponds to an A1c of <5.7%. Blood Venipuncture / Unknown 02/10/2024 11:27 AM CDT 02/10/2024 11:27 AM CDT Narrative [facility] - 02/10/2024 11:56 AM CDT For [...] for further direction. us Reyes W Ramon EXTRAS CASTING DIRECTOR, RALPH LAB_1 Miesha l Result [facility] [address] [place] [address], [facility] * US Abd AAA Screening (05/13/2020 10:22 AM [employer] [facility]) Anatomical Region Laterality Modality Abdomen Ultrasound 05/13/2020 10:0 6 AM [employer] [facility] Impressions 05/13/2020 10:35 AM [employer] [facility] HISTORY: Evaluate for AAA. COMPARISON: None. FINDINGS: [...] consultation with vascular surgery us Reyes Navarro EXTRAS CASTING DIRECTOR, BULL GANG WORKER RAD US Miesha l Result * Colonoscopy (07/15/2017 1:46 PM [employer] [facility]) Anatomical Region Laterality Modality Other 07/15/2017 1:46 PM [employer] [facility] Narrative 07/15/2017 1:46 PM [employer] [facility] Patient Name: Flaco Condon Procedure Date: 07/15/2017 [...] physician PRN. Procedure Code(s): --- Professional --- 05010, Colonoscopy, flexible; with biopsy, single or multiple Diagnosis Code(s): --- Professional --- Z12.11, Encounter for screening for malignant neoplasm of colon D12.5, Benign neoplasm of sigmoid colon K57.30, Diverticulosis of large intestine without perforation or abscess without bleeding CPT copyright 2016 [employer]. All rights reserved. The codes documented in this report are preliminary and upon imager review may be revised to meet current [...] physician PRN. Procedure Code(s): --- Professional --- 91786, Colonoscopy, flexible; with biopsy, single or multiple Diagnosis Code(s): --- Professional --- Z12.11, Encounter for screening for malignant neoplasm of colon D12.5, Benign neoplasm of sigmoid colon K57.30, Diverticulosis of large intestine without perforation or abscess without bleeding CPT copyright 2016 [employer]. All rights reserved. The codes documented in this report are preliminary and upon imager review may be revised to meet current [...] - 04/14/2017 5:35 PM CDT Performed at [facility] [id number] [place] [address] CLIA number [id number] us Reyes Navarro APRN, RALPH LAB_1 Miesha l Result [facility] [place] [address] from Last 3 Months or Most Recently Relevant to Health Maintenance Insurance [facility] MEDICARE Advance Directives Documents on File Type Date Recorded Patient Automation Engineer Expl anation Advance Directive/Living Will/Durable Power of Attny on file/POLST PN 04/24/2020 9:01 AM Agents Radha Condon/Margret Ortega Care Teams Combat Systems Officer Relationship Specialty Start Date End Date Reyes Navarro, EXTRAS CASTING DIRECTOR, BULL GANG WORKER [address] [facility] [place] [address] PCP - General 10/05/10
--- OUTSIDE RECORDS SUMMARY | 2024-10-21 16:15 | XMS_ITS | Clinical Summary ---
Author Organization 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 1 Pill per day for 5 days. 15 Tablet 09/29/2024 Active Active Problems No known active problems Encounters Date Type Department Care Team Description 09/29/2024 12:45 PM CDT Office Visit [facility] [place] [address] [facility] [address] [place] [address] Kodak Schroeder MD Consult (Right hip pain ) 09/29/2024 Travel 09/26/2024 Travel 09/25/2024 Telephone [facility] [address] [place] [address] Kodak Schroeder MD Screening 09/21/2024 11:35 AM CDT Ancillary Procedure [facility] [address] [facility] [address] [place] [address] 09/21/2024 11:30 AM CDT Ancillary Procedure [facility] [address] [facility] [address] [place] [address] 09/21/2024 11:15 AM CDT Office Visit [facility] [address] [facility] [address] [place] [address] Jaron Ag DO Hip Pain/problem (Right hip) 09/21/2024 Travel 09/19/2024 Travel 09/17/2024 Telephone [facility] [address] 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 PCP - General 02/16/24
--- OUTSIDE RECORDS SUMMARY | 2024-10-21 16:15 | XMS_ITS ---
Author Name BrandonVitor griffiths Address [address] [address] [facility], Address [address] [address] Care Team Providers Care Qa Auditor Name Role Phone Vitor Reed Primary Care [...] Policy Number Policy Group Number Start Date [facility] CAP [id number] Thursday, 2021 [facility] thPlus$[id number] CAP [id number] Sunday, 2020 History of Encounters Visit Date Visit Type Provider 10/06/2022 In Office Visit 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
== END 2024-10-21 16:26 | disposition home or self-care (01) ==
PROVIDERS: Emergency Provider Family Medicine
DX: M54.50 Low back pain, unspecified (principal)
CPT/HCPCS: 99283; A9270